=== PATIENT | female | born 1990 | race Native Hawaiian/Other Pacific Islander ===

== ENCOUNTER → 2016-12-27 19:00 | Outpatient (CLI) | payer OTHER | END | disposition home or self-care (01) | LOC: AMB 19:00 | DX: Z04.3 Encounter for examination and observation following other accident (principal) ==

== ENCOUNTER 2020-01-16 11:56 | Outpatient (CLI) | payer BC | END 2020-01-16 21:39 | disposition home or self-care (01) | LOC: US 11:56 | DX: R10.31 Right lower quadrant pain (principal) ==